=== PATIENT | female | born 1940 | race Caucasian/White ===

== ENCOUNTER → 2016-12-23 | Outpatient (CLI) | payer MEDICARE ==
[~2016-12-23] MED LIST: AFRIN-DPS15 ML NS; AMBIEN DPS5 MG PO; ANORO ELLIPTA 62.1 - IH; ANTIOXIDANT FO1 EAC1 PO; COZAAR DPS50 MG PO; DELTASONE DPS5 MG PO; DUONEB DPS3 ML IH; DURAGESIC1 EACH TD; ELIQUIS5 MG PO; ESCITALOPRAM OX20 MG PO; FEMARA DPS2.5 MG PO; LASIX DPS40 MG PO; LOPRESSOR DPS50 MG PO; LUMIGAN 0.01%2.5 ML OU; MIRALAX PACKET17 GM PO; MULTIPLE VITAM1 EACH PO; NEURONTIN DPS300 MG PO; NICOTINE PATCH1 EAC1 TD; NORCO 5-325 TA1 EACH PO; OCEAN NASAL MIS45 ML NS; OXY IR DPS5 MG PO; POTASSIUM CHLO20 ME2 PO; PRESERVISION L1 EACH PO; SENNA S TABLET1 EACH PO; SIMBRINZA 1%-0.28 ML OU; SPIRONOLACTONE25 MG PO; SYSTANE 0.3-0.1 EACH OU; TYLENOL DPS325 MG PO; VIBRAMYCIN-DPS100 M2 PO; VITAMIN D-32000 UNI1 PO; XANAX DPS0.25 MG PO
--- NOTE | ~2016-12-23 | ECH ---
Transthoracic Echocardiography Report (TTE) Demographics Patient Name LINDA MEDINA Date of Study 12/23/2016 F Patient Number [id number] Visit Number [id number] Date of 1940 Room Number Accession Number [id number] Gender Female Age 76 year(s) Referring Glen Hernandez Spring Coiling Machine Setter Sari Amezcua [facility] Physician Physician Interpreting Chelo Washington MD Material Reclaimer Physician Supervising Ordering Physician Glen Hernandez MD/MLP Nurse Stress Gas Pumper Conclusions Contractility Score Summary Normal Left Ventricular contractility was noted. Summary Technically good exam. The estimated left ventricular ejection fraction is 60-65%. Diastolic assessment reveals Grade I diastolic dysfunction. There is mild aortic regurgitation by color Doppler. Mild tricuspid regurgitation by color Doppler. There is mild pulmonary hypertension. The pulmonary pressure (RVSP) is 48 mmHg. Moderate pulmonic valve regurgitation by color Doppler. Procedure Type of Study TTE procedure:Echo Complete SF. Procedure Date Date: 12/23/2016 Start: 10:26 AM Technical Quality: Good visualization Indications:Bilateral lower extremity edema and Hypertension. Appropriate Use Criteria: 9 Height: 62 inches Weight: 89 pounds BSA: 1.35 m Rhythm: Irregular HR: 70 bpm BP: 120/78 mmHg M-Mode/2D Measurements LV Diastolic Dimension: 3.57 cm LV Systolic Dimension: 2.81 cm LV Septum Diastolic: 0.79 cm LV PW Diastolic: 0.74 cm AO Root Dimension: 3.02 cm Cardiac Output: 4.08 l/min LA Dimension: 2.61 cm Cardiac Index: 3.02 l/min*m RV Diastolic Dimension: 4.38 cm LA volume index: 25 ml/m LVOT: 1.95 cm LVOT VTI: 19.54 cm RV Base: 3.6 cm LV Stroke volume: 58.33 ml RV Mid: 2.4 cm LV Stroke volume index: 43.21 ml/m TAPSE: 3 cm TDI-S': 14 cm/s Doppler Measurements AV Peak Velocity: 1.2 m/s MV Peak E-Wave: 0.68 m/s AV Peak Gradient: 5.76 mmHg MV Peak A-Wave: 0.75 m/s AV Mean Gradient: 3.73 mmHg MV E/A Ratio: 0.91 LVOT Peak Velocity: 0.94 m/s MV P1/2t: 55.7 msec AV Area (Continuity):2.52 cm AV P1/2t: 731 msec MV Deceleration Time: 203.1 msec TR Velocity:3.28 m/s MV Area (PHT): 3.95 cm TR Gradient:43.03 mmHg PV Peak Velocity: 1.14 m/s Estimated RAP:5 mmHg PV Peak Gradient: 5.22 mmHg Estimated RVSP: 48 mmHg Estimated PASP: 48.03 mmHg E' Septal Velocity: 0.08 m/s A' Septal Velocity: 0.1 m/s E' Lateral Velocity: 0.06 m/s A' Lateral Velocity: 0.13 m/s RA Area: 15.89 cm Findings Left Ventricle Normal left ventricle size and function. Diastolic assessment reveals Grade I diastolic dysfunction. Right Ventricle Normal right ventricle structure and function. Left Atrium Normal left atrial size. Right Atrium Normal right atrial size. Mitral Valve Normal mitral valve structure and function. Trivial mitral regurgitation by color Doppler. Aortic Valve The aortic valve is mildly sclerotic. There is mild aortic regurgitation by color Doppler. Tricuspid Valve Normal tricuspid valve structure and function. Mild tricuspid regurgitation by color Doppler. There is mild pulmonary hypertension. The pulmonary pressure (RVSP) is 48 mmHg. Pulmonic Valve Normal pulmonic valve structure and function. Moderate pulmonic valve regurgitation by color Doppler. Pericardial Effusion No evidence of pericardial effusion. Miscellaneous Visualized portions of the aortic root and ascending aorta appear normal in size. Pleural Effusion No evidence of pleural effusion. Contractility Score LV regional wall motion:(0-Non visualized 1-Normal 2-Hypokinesis 3-Akinesis 4-Dyskinesis 5-Aneurysm) Signature
== END | disposition home or self-care (01) ==
LOC: CARD 12-18 14:08
DX: R60.0 Localized edema (principal); I10 Essential (primary) hypertension; C50.919 Malignant neoplasm of unspecified site of unspecified female breast; I27.2 Other secondary pulmonary hypertension; I08.2 Rheumatic disorders of both aortic and tricuspid valves; I37.1 Nonrheumatic pulmonary valve insufficiency

== ENCOUNTER 2017-02-19 10:16 | Day surgery (SDC) | payer MEDICARE ==
[~2017-02-19] VITALS: Ht 148.6 cm
[~2017-02-19 10:16] MED LIST changes: -AFRIN-DPS15 ML NS; -AMBIEN DPS5 MG PO; -ANORO ELLIPTA 62.1 - IH; -DELTASONE DPS5 MG PO; -DUONEB DPS3 ML IH; -DURAGESIC1 EACH TD; -ELIQUIS5 MG PO; -ESCITALOPRAM OX20 MG PO; -FEMARA DPS2.5 MG PO; -LASIX DPS40 MG PO; -LOPRESSOR DPS50 MG PO; -MIRALAX PACKET17 GM PO; -MULTIPLE VITAM1 EACH PO; -NEURONTIN DPS300 MG PO; -NICOTINE PATCH1 EAC1 TD; -OCEAN NASAL MIS45 ML NS; -OXY IR DPS5 MG PO; -POTASSIUM CHLO20 ME2 PO; -SENNA S TABLET1 EACH PO; -SYSTANE 0.3-0.1 EACH OU; -TYLENOL DPS325 MG PO; -VIBRAMYCIN-DPS100 M2 PO
--- NOTE | 2017-02-21 08:06 | OR ---
ADMIT: 02/19/2017 RM/LOC: [facility] MR#: [id number] [address] [address] LINDA MEDINA [address] [place] [address] Operative/Delivery Room Report SEX: F AGE: 76 : 1940 SURGERY DATE: 02/19/2017 SURGEON: Stoney Duncan MD INSIDE METER TESTER: None. PREOPERATIVE DIAGNOSES: 1. Right hip pain. 2. Right hip bony metastases. POSTOPERATIVE DIAGNOSES: 1. Right hip pain. 2. Right hip bony metastases. PROCEDURE PERFORMED: Right hip injection, anterior approach. INDICATIONS FOR PROCEDURE: The patient is a pleasant female with history of chronic right hip pain secondary to above-mentioned diagnoses comes here for planned right hip injection. ANESTHESIA: Local without sedation. ESTIMATED BLOOD LOSS: Zero. COMPLICATIONS: None immediately evident. DESCRIPTION OF PROCEDURE: After the patient was seen in the preoperative area, vitals signs were taken. Prior to the procedure, the risks, benefits, and alternative therapies were discussed at length. The patient's consent was obtained and updated. The patient was taken to the fluoroscopy suite and placed on the fluoroscopy table in the prone position. Pressure points were padded to comfort, monitors applied, and a time-out performed. C-arm was brought in to identify the right hip joint. Lidocaine plain 1%, approximately 1 mL, was used to anesthetize the skin and underlying subcutaneous tissue. A 3.5-inch 22-gauge curved-tip spinal needle was then advanced through the anesthetized skin and placed into the neck of right femur. Isovue-300 was injected and the joint spread was noted. After correct placement was confirmed, 5 mL of 0.25% bupivacaine and 80 mg of Depo-Medrol were injected. The patient tolerated the procedure well without any complication. The patient was brought to PACU, where the patient recovered nicely. The patient was examined afterwards and had 40% reduction of pain. Stoney Duncan MD/ zana JOB #: [id number] CC: Stoney Duncan, Attending Physician ADMIT: 02/19/2017 RM/LOC: [facility] MR#: [id number] [facility] [address] LINDA MEDINA [address] [place] [address] Operative/Delivery Room Report SEX: F AGE: 76 : 1940 Lilibeth Carroll, Family Physician
[2017-06-29] MEDS ORDERED: ELIQUIS5 MG PO (09:49)
[2017-06-29] MEDS ORDERED: DUONEB DPS3 ML IH (09:49)
[2017-06-29] MEDS ORDERED: ESCITALOPRAM OX20 MG PO (09:50)
[2017-06-29] MEDS ORDERED: NEURONTIN DPS300 MG PO (09:51)
[2017-06-29] MEDS ORDERED: DURAGESIC1 EACH TD (09:51)
[2017-06-29] MEDS ORDERED: LUMIGAN 0.01%2.5 ML OU (09:52)
[2017-06-29] MEDS ORDERED: FEMARA DPS2.5 MG PO (09:52)
[2017-06-29] MEDS ORDERED: LASIX DPS40 MG PO (09:52)
[2017-06-29] MEDS ORDERED: NICOTINE PATCH1 EAC1 TD (09:53)
[2017-06-29] MEDS ORDERED: AFRIN-DPS15 ML NS (09:53)
[2017-06-29] MEDS ORDERED: OXY IR DPS5 MG PO (09:53)
[2017-06-29] MEDS ORDERED: POTASSIUM CHLO20 ME2 PO (09:54)
[2017-06-29] MEDS ORDERED: MIRALAX PACKET17 GM PO (09:54)
[2017-06-29] MEDS ORDERED: SENNA S TABLET1 EACH PO (09:54)
[2017-06-29] MEDS ORDERED: MULTIPLE VITAM1 EACH PO (09:54)
[2017-06-29] MEDS ORDERED: SYSTANE 0.3-0.1 EACH OU (09:55)
[2017-06-29] MEDS ORDERED: SIMBRINZA 1%-0.28 ML OU (09:55)
[2017-06-29] MEDS ORDERED: VITAMIN D-32000 UNI1 PO (09:56)
[2017-06-29] MEDS ORDERED: ANORO ELLIPTA 62.1 - IH (09:56)
[2017-06-29] MEDS ORDERED: AMBIEN DPS5 MG PO (09:56)
[2017-06-29] MEDS ORDERED: DELTASONE DPS5 MG PO (09:58)
[2017-06-29] MEDS ORDERED: VIBRAMYCIN-DPS100 M2 PO (09:58)
[2017-06-29] MEDS ORDERED: TYLENOL DPS325 MG PO (09:59)
[2017-06-29] MEDS ORDERED: XANAX DPS0.25 MG PO (09:59)
[2017-06-29] MEDS ORDERED: OCEAN NASAL MIS45 ML NS (09:59)
[2017-06-29] MEDS ORDERED: LOPRESSOR DPS50 MG PO (10:00)
== END 2017-02-19 12:20 | disposition home or self-care (01) ==
LOC: SSS 10:16
PROC: 3E0U33Z Introduction of Anti-inflammatory into Joints, Percutaneous Approach (ICD-10-PCS; principal; 2017-02-19)
PROC: 3E0U3BZ Introduction of Anesthetic Agent into Joints, Percutaneous Approach (ICD-10-PCS; principal; 2017-02-19)
DX: G89.29 Other chronic pain (principal); M25.551 Pain in right hip; C79.51 Secondary malignant neoplasm of bone; C80.1 Malignant (primary) neoplasm, unspecified; Z87.891 Personal history of nicotine dependence; Z98.890 Other specified postprocedural states

== ENCOUNTER → 2017-03-07 | Outpatient (CLI) | payer MEDICARE ==
[~2017-03-07] MED LIST changes: +AFRIN-DPS15 ML NS; +AMBIEN DPS5 MG PO; +ANORO ELLIPTA 62.1 - IH; +DELTASONE DPS5 MG PO; +DUONEB DPS3 ML IH; +DURAGESIC1 EACH TD; +ELIQUIS5 MG PO; +ESCITALOPRAM OX20 MG PO; +FEMARA DPS2.5 MG PO; +LASIX DPS40 MG PO; +LOPRESSOR DPS50 MG PO; +MIRALAX PACKET17 GM PO; +MULTIPLE VITAM1 EACH PO; +NEURONTIN DPS300 MG PO; +NICOTINE PATCH1 EAC1 TD; +OCEAN NASAL MIS45 ML NS; +OXY IR DPS5 MG PO; +POTASSIUM CHLO20 ME2 PO; +SENNA S TABLET1 EACH PO; +SYSTANE 0.3-0.1 EACH OU; +TYLENOL DPS325 MG PO; +VIBRAMYCIN-DPS100 M2 PO
== END | disposition home or self-care (01) ==
LOC: RAD.S 09:49
DX: C50.412 Malignant neoplasm of upper-outer quadrant of left female breast (principal); C79.51 Secondary malignant neoplasm of bone; I10 Essential (primary) hypertension; M21.951 Unspecified acquired deformity of right thigh